=== PATIENT | female | born 1950 | race Caucasian/White ===

== ENCOUNTER → 2016-11-18 | Outpatient (CLI) | payer BC, OTHER ==
[~2016-11-18] MED LIST: ADVAIR 250-501 EACH INH; ALLEGRA60 MG PO; AMARYL2 MG PO; ARTHRITIS PAIN650 M3 PO; ATACAND8 MG PO; CALCIUM; CALCIUM 600 +1 EAC1 PO; DILTIAZEM 24HR240 MG PO; FENOFIBRATE134 MG PO; FERRO-TIME325 MG PO; FISHOIL PO; FOSINOPRIL SODI40 M1 PO; GLUCOPHAGE XR500 MG PO; GLUMETZA500 PO; HYDROXYZINE PAM50 MG PO; IMDUR 30 MG TAB30 M1 PO; KLOR-CON; LOFIBRA160 MG PO; MAG-OX 400 TAB400 M1 PO; MICARDIS40 MG PO; NASONEX17 GM NS; PLAVIX 75 MG TA75 MG PO; POTASSIUM GLUCONATE PO; PROTONIX40 M2 PO; SYNTHROID112 MCG; SYNTHROID112 MCG PO; THEOPHYLLINE S300 MG PO; VITAMIN D-32000 UNIT PO; ZOCOR 20 MG TAB20 M1 PO
== END ==
LOC: SLEEPLAB 10-20 11:11
DX: G47.33 Obstructive sleep apnea (adult) (pediatric) (principal)

== ENCOUNTER → 2016-12-10 | Outpatient (CLI) | payer BC, OTHER | LOC: SLEEPLAB 11:50 | DX: G47.33 Obstructive sleep apnea (adult) (pediatric) (principal) ==

== ENCOUNTER → 2017-04-15 | Outpatient (CLI) | payer BC, OTHER | LOC: SLEEPLAB 07:52 | DX: G47.33 Obstructive sleep apnea (adult) (pediatric) (principal) ==